=== PATIENT | male | born 1960 | race Caucasian/White ===

== ENCOUNTER 2017-04-12 20:47 | Emergency (ER) | payer OTHER, MEDICAID ==
[~2017-04-12 20:47] MED LIST: ASPIR 8181 MG PO; ATA25 PO; ATORVASTATIN CA40 M1 PO; BACLOFEN20 MG PO; COR6 PO; DICLOFENAC SODI75 MG PO; GLUCOTROL5 MG PO; IBU800 M1 PO; METFORMIN HCL1000 MG PO; NORCO1 TA2 PO; OMEPRAZOLE40 M1 PO; ORPHENADRINE C100 MG PO; PRINIVIL20 MG PO
[2017-04-12 22:00] VITALS: BP 184/88
== END 2017-04-12 22:00 | disposition home or self-care (01) ==
LOC: ED 20:47
DX: S93.402A Sprain of unspecified ligament of left ankle, initial encounter (principal); E78.00 Pure hypercholesterolemia, unspecified; E11.9 Type 2 diabetes mellitus without complications; I10 Essential (primary) hypertension; W01.0XXA Fall on same level from slipping, tripping and stumbling without subsequent striking against object, initial encounter; Y93.89 Activity, other specified; Y99.8 Other external cause status; Y92.89 Other specified places as the place of occurrence of the external cause
CPT/HCPCS: J1885

== ENCOUNTER 2017-08-20 12:32 | Emergency (ER) | payer OTHER, MEDICAID ==
[~2017-08-20] VITALS: Ht 165.1 cm; Wt 79.4 kg
[2017-08-20 12:54] VITALS: Ht 165.1 cm; Wt 79.4 kg
[2017-08-20 14:25] VITALS: BP 138/71
== END 2017-08-20 14:25 | disposition home or self-care (01) ==
LOC: ED 12:32
DX: E11.621 Type 2 diabetes mellitus with foot ulcer (principal); I10 Essential (primary) hypertension; E78.00 Pure hypercholesterolemia, unspecified; I25.2 Old myocardial infarction; Z86.79 Personal history of other diseases of the circulatory system

== ENCOUNTER 2019-01-18 09:26 | Emergency (ER) | payer OTHER, MEDICAID ==
[~2019-01-18] VITALS: Ht 165.1 cm; Wt 76.7 kg
[2019-01-18 09:29] VITALS: Ht 165.1 cm; Wt 76.7 kg
[2019-01-18 11:28] VITALS: BP 130/69
== END 2019-01-18 11:28 | disposition home or self-care (01) ==
LOC: ED 09:26
DX: S80.01XA Contusion of right knee, initial encounter (principal); S20.212A Contusion of left front wall of thorax, initial encounter; I10 Essential (primary) hypertension; E11.9 Type 2 diabetes mellitus without complications; E78.00 Pure hypercholesterolemia, unspecified; W10.8XXA Fall (on) (from) other stairs and steps, initial encounter; Y93.89 Activity, other specified; Y92.89 Other specified places as the place of occurrence of the external cause; Y99.8 Other external cause status

== ENCOUNTER 2019-01-24 14:41 | Emergency (ER) | payer OTHER, MEDICAID ==
[~2019-01-24] VITALS: Ht 165.1 cm; Wt 75.3 kg
[2019-01-24 14:49] VITALS: Ht 165.1 cm; Wt 75.3 kg
[2019-01-24 18:54] VITALS: BP 160/80
== END 2019-01-24 18:54 | disposition home or self-care (01) ==
LOC: ED 14:41
DX: S01.01XA Laceration without foreign body of scalp, initial encounter (principal); S40.021A Contusion of right upper arm, initial encounter; W01.10XA Fall on same level from slipping, tripping and stumbling with subsequent striking against unspecified object, initial encounter; Y93.89 Activity, other specified; Y92.89 Other specified places as the place of occurrence of the external cause; Y99.8 Other external cause status
CPT/HCPCS: J2001

== ENCOUNTER 2019-01-26 11:21 | Emergency (ER) | payer OTHER, MEDICAID ==
[~2019-01-26] VITALS: Ht 165.1 cm; Wt 75.3 kg
[2019-01-26 11:28] VITALS: BP 144/71; Ht 165.1 cm; Wt 75.3 kg
== END 2019-01-26 12:00 | disposition home or self-care (01) ==
LOC: ED 11:21
DX: S01.01XD Laceration without foreign body of scalp, subsequent encounter (principal); X58.XXXD Exposure to other specified factors, subsequent encounter; I10 Essential (primary) hypertension; E11.9 Type 2 diabetes mellitus without complications; E78.00 Pure hypercholesterolemia, unspecified; I25.2 Old myocardial infarction